=== PATIENT | female | born 1955 | race Caucasian/White ===

== ENCOUNTER → 2017-11-16 | Outpatient (CLI) | payer BC ==
[~2017-11-16] MED LIST: CETIRIZINE; DOXYCYCLINE PO; FISH OIL CONC1000 MG PO; FORTAMET1000 MG PO; GLUCOPHAGE500 MG/TAB PO; KETOROLAC10 MG PO; LEVOTHYROXINE PO; MELAT3MGTAB PO; MVI; NORCO 325 MG-51 TAB PO; SINGULAIR 110 MG/TAB PO; THYROID; ZINC SO4; ZOMIG 2.5MG2.5 MG PO; ZOMIG2.5 MG PO; ZYRTEC 10MG10 MG PO
== END ==
LOC: MC.RAD 10:15
DX: Z12.31 Encounter for screening mammogram for malignant neoplasm of breast (principal)

== ENCOUNTER → 2018-06-16 | Outpatient (CLI) | payer MEDICARE, BC | LOC: COL.RAD 08:00 | DX: M25.511 Pain in right shoulder (principal) | CPT/HCPCS: J3301; Q9967 ==

== ENCOUNTER → 2018-09-01 | Outpatient (CLI) | payer MEDICARE, BC | LOC: COL.RAD 12:49 | DX: M19.041 Primary osteoarthritis, right hand (principal) | CPT/HCPCS: J3301; Q9967 ==

== ENCOUNTER → 2018-11-18 | Outpatient (CLI) | payer MEDICARE, BC | LOC: MC.RAD 15:53 | DX: Z12.31 Encounter for screening mammogram for malignant neoplasm of breast (principal) ==

== ENCOUNTER → 2020-02-02 | Outpatient (CLI) | payer MEDICARE, BC | LOC: MC.RAD 12-12 10:30 | DX: Z12.31 Encounter for screening mammogram for malignant neoplasm of breast (principal) ==